=== PATIENT | male | born 1960 | race Caucasian/White ===

== ENCOUNTER 2020-06-04 15:26 | Emergency (ER) | payer SELFPAY ==
[~2020-06-04] VITALS: Ht 190.5 cm; Wt 79.4 kg
[2020-06-04 15:40] VITALS: BP 134/90
== END 2020-06-04 18:08 | disposition home or self-care (01) ==
LOC: ER 15:26
DX: R05 Cough (principal); R06.02 Shortness of breath; R07.89 Other chest pain; R42 Dizziness and giddiness; Z20.828 Contact with and (suspected) exposure to other viral communicable diseases
CPT/HCPCS: 71045; 99284; U0003

== ENCOUNTER 2020-06-14 00:29 | Emergency (ER) | payer MEDICAID, OTHER ==
[~2020-06-14] VITALS: Ht 190.5 cm; Wt 77.1 kg
[2020-06-14 01:25] LABS: Basophils # (auto) 0.1 10 ^3/uL (0-0.2); Basophils % (auto) 0.7 % (0.0-2.0); Eosinophils # (auto) 0.5 10 ^3/uL (0-0.8); Eosinophils % (auto) 4.2 % (0.0-7.0); Hematocrit 52.2 % (41.0-53.0); Hemoglobin 17.6 g/dL (13.5-17.5); Lymphocytes # (auto) 1.7 10 ^3/uL (0.4-5.4); Lymphocytes % (auto) 13.6 % (10.0-50.0); Mean Corpuscular Hemoglobin 31.8 pg (28.0-32.0); Mean Corpuscular Hgb Conc. 33.7 g/dL (32.0-36.0); Mean Corpuscular Volume 94.2 fL (80.0-100.0); Monocytes # (auto) 1.4 10 ^3/uL (0-1.3); Monocytes % (auto) 11.5 % (0.0-12.0); Neutrophils # (auto) 8.5 10 ^3/uL (1.6-8.6); Nucleated Red Blood Cells % 0.5 %; Platelet Count (auto) 295 10^3/uL (140-450); Red Blood Cells 5.54 10^6/uL (4.5-5.90); Red Cell Distribution Width 13.8 % (11.8-14.3); White Blood Cell 12.2 10^3/uL (4.4-10.8)
[2020-06-14 01:42] LABS: Alanine Aminotransferase 14 U/L (16-61); Albumin 3.5 g/dL (3.4-5.0); Anion Gap 4 (5-15); Aspartate Aminotransferase 19 U/L (15-37); BUN/Creatinine Ratio 7.8; Blood Urea Nitrogen 9 mg/dL (7-18); Carbon Dioxide 30 mmol/L (21-32); Chloride 97 mmol/L (98-107); GFR African American 83 mL/min; GFR Non-African American 69 mL/min; Glucose 116 mg/dL (74-106); Sodium 131 mmol/L (136-145)
[2020-06-14 01:47] LABS: Alkaline Phosphatase 100 U/L (45-117); Bilirubin, Total 0.9 mg/dL (0.2-1.0); Total Protein 8.2 g/dL (6.4-8.2)
[2020-06-14 08:10] VITALS: BP 127/65
== END 2020-06-14 08:23 | disposition home or self-care (01) ==
LOC: ER 00:29
DX: R07.89 Other chest pain (principal); J40 Bronchitis, not specified as acute or chronic; F17.210 Nicotine dependence, cigarettes, uncomplicated; Z88.0 Allergy status to penicillin
CPT/HCPCS: 36415; 71046; 80053; 84484; 85025; 93005